=== PATIENT | female | born 1970 | race African-American/Black ===

== ENCOUNTER 2016-11-22 13:22 | Observation (INO) | payer SELFPAY ==
[2016-11-22] MEDS ORDERED: ASPIRIN 81 MG TABLET, CHEWABLE PO ONE (13:43)
--- NOTE | 2016-11-22 13:47 | ER Document Report ---
ED Medical Screen (RME) - General Stated Complaint: CHEST PAIN, SUICIDAL IDEATION Mode of Arrival: Medic Information source: Patient Notes: 45 y/o F presents to ED via ems c/o intermittently persistent episodes of chest pain, sob, and n/v. Also reports has been under alot of stress and anxiety lately and states depression has been getting worse and has thought about suicide. I have greeted and performed a rapid initial assessment of this patient. A comprehensive ED assessment and evaluation of the patient, analysis of test results and completion of the medical decision making process will be conducted by additional ED providers. TRAVEL OUTSIDE OF THE [place] IN LAST 30 DAYS: No - Related Data Allergies/Adverse Reactions: morphine Allergy (Verified 09/11/16 08:17) Rivaroxaban Allergy (Verified 09/11/16 08:17) Past Medical History - Past Medical History Cardiac Medical History: Reports: Hx Atrial Fibrillation, Hx Coronary Artery Disease, Hx Heart Attack - x 2, Hx Hypertension Psychiatric Medical History: Reports: Hx Depression Past Surgical History: Reports: Hx Cardiac Surgery, Hx Cholecystectomy - Immunizations Hx Diphtheria, Pertussis, Tetanus Vaccination: No Physical Exam - Vital signs Vitals: Temp Pulse Resp BP Pulse Ox 98.0 F 86 20 148/89 H 100 11/22/16 13:40 11/22/16 13:40 11/22/16 13:40 11/22/16 13:40 11/22/16 13:40 - General General appearance: Alert In distress: Mild - Respiratory Respiratory status: No respiratory distress Breath sounds: Normal, Productive cough - Cardiovascular Rhythm: Regular Pulses: Normal: Radial Normal capillary refill: Yes - Psychological Associated symptoms: Anxious Course - Vital Signs Vital signs: Temp Pulse Resp BP Pulse Ox 98.0 F 86 20 148/89 H 100 11/22/16 13:40 11/22/16 13:40 11/22/16 13:40 11/22/16 13:40 11/22/16 13:40
[2016-11-22] MEDS ORDERED: LORAZEPAM 1 MG TABLET PO ONE (15:10)
[2016-11-22] MEDS ORDERED: PROMETHAZINE HCL INJ 25 MG/1 ML VIAL IV ONE ×2 (15:15→15:48)
[2016-11-22] MEDS ORDERED: NITROGLYCERIN 0.4 MG/TAB 25 TAB/BOTTLE SL PRN ×2 (15:21→18:05)
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
[2016-11-22 16:44] LABS: ABSOLUTE EOSINOPHILS # (AUTO) 0.2 10^3/uL (0.0-0.6); ABSOLUTE LYMPHOCYTES (AUTO) 2.4 10^3/uL (0.5-4.7); ABSOLUTE MONOCYTES (AUTO) 0.5 10^3/uL (0.1-1.4); ABSOLUTE NEUT (AUTO) 1.8 10^3/uL (1.7-8.2); EOSINOPHILS % (AUTO) 3.6 % (0-6); HEMATOCRIT 40.8 % (36.0-47.0); HEMOGLOBIN 13.5 g/dL (12.0-15.5); HGB HCT DIFFERENCE -0.3; LYMPHOCYTES % (AUTO) 48.4 % (13-45); MEAN CORPUSCULAR HEMOGLOBIN 28.1 pg (27.0-33.4); MEAN CORPUSCULAR HGB CONC 33.2 g/dL (32.0-36.0); MEAN CORPUSCULAR VOLUME 85 fl (80-97); MONOCYTES % (AUTO) 9.6 % (3-13); RED BLOOD COUNT 4.82 10^6/uL (3.72-5.28); RED CELL DISTRIBUTION WIDTH 14.9 % (11.5-14.0); SEGMENTED NEUTROPHILS % (AUTO) 37.4 % (42-78); WHITE BLOOD COUNT 4.9 10^3/uL (4.0-10.5)
[2016-11-22 17:04] LABS: ALANINE AMINOTRANSFERASE 22 U/L (9-52); ALBUMIN 4.6 g/dL (3.5-5.0); ALKALINE PHOSPHATASE 65 U/L (38-126); ANION GAP 9 (5-19); ASPARTATE AMINO TRANSFERASE 22 U/L (14-36); BILIRUBIN,TOTAL 0.3 mg/dL (0.2-1.3); BLOOD UREA NITROGEN 13 mg/dL (7-20); CALCIUM 10.6 mg/dL (8.4-10.2); CARBON DIOXIDE 29 mmol/L (22-30); CHLORIDE 105 mmol/L (98-107); CREATINE KINASE 84 U/L (30-135); CREATININE RESULT 0.83 mg/dL (0.52-1.25); GLUCOSE 81 mg/dL (75-110); LIPASE 67.4 U/L (23-300); POTASSIUM 4.7 mmol/L (3.6-5.0); SODIUM 143.2 mmol/L (137-145); TOTAL PROTEIN 7.1 g/dL (6.3-8.2)
[2016-11-22 17:05] LABS: ALCOHOL < 10 mg/dL (NONE DETECTED)
[2016-11-22 17:16] LABS: CREATINE KINASE MB < 0.22 ng/mL (<4.55); TROPONIN I < 0.012 ng/mL
[2016-11-22] MEDS ORDERED: ONDANSETRON HCL INJ/PF 4 MG/2 ML SDV IV PRN (18:05)
[2016-11-22] MEDS ORDERED: MAG HYDROX/AL HYDROX/SIMETH SUSP 30 ML UDCUP PO PRN (18:05)
[2016-11-22 19:11] LABS: THYROID STIMULATING HORMONE 0.02 uIU/mL (0.47-4.68)
[2016-11-22] MEDS ORDERED: FLUCONAZOLE 100 MG TABLET PO ONE (19:15)
[2016-11-22] MEDS ORDERED: BISACODYL 5 MG TABEC PO ONE (19:15)
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
[2016-11-22] MEDS: TRAMADOL HCL 50 MG TABLET PO PRN (19:53)
--- NOTE | 2016-11-22 20:10 | EKG REPORT ---
SEVERITY:- ABNORMAL ECG - SINUS RHYTHM REPOL ABNRM SUGGESTS ISCHEMIA, INFERIOR LEADS : Confirmed by: Wil Garcia 22-Nov-2016 20:09:19
--- NOTE | 2016-11-22 20:10 | EKG REPORT ---
SEVERITY:- BORDERLINE ECG - SINUS RHYTHM PROBABLE LEFT ATRIAL ABNORMALITY NONSPECIFIC ST-T CHANGES : Confirmed by: Wil Garcia 22-Nov-2016 20:09:11
[2016-11-22] MEDS ORDERED: LIDOCAINE 5% (700 MG) TRANSDERMAL ADH..PATCH TP ONE (21:00)
[2016-11-22] MEDS: ATORVASTATIN CALCIUM 40 MG TABLET PO SCH (21:17)
[2016-11-22] MEDS ORDERED: LORAZEPAM INJ 2 MG/1 ML VIAL IV ONE (21:17)
[2016-11-22] MEDS: OXCARBAZEPINE 150 MG TABLET PO SCH (21:21)
[2016-11-22] MEDS: METOPROLOL SUCCINATE 25 MG TAB.SR.24H PO SCH (21:21)
[2016-11-22] MEDS: OXYCODONE-ACETAMINOPHEN 5-325 MG TABLET PO PRN (21:22)
[2016-11-22] MEDS: HYDROXYZINE PAMOATE 50 MG CAPSULE PO PRN (21:22)
[2016-11-22] MEDS ORDERED: LOSARTAN POTASSIUM 25 MG TABLET PO SCH (22:00)
[2016-11-22] MEDS: ZIPRASIDONE HCL 20 MG CAPSULE PO SCH (22:28)
[2016-11-22] MEDS ORDERED: INFLUENZA ADLT QUAD (36MOS+) 2016-17 VAC 0.5 ML SYR IM PRN (22:33)
[2016-11-22 22:42] LABS: CREATINE KINASE MB < 0.22 ng/mL (<4.55); TROPONIN I < 0.012 ng/mL
[2016-11-22] MEDS ORDERED: NICOTINE 7 MG/24 HR PATCH.TD24 TD PRN (23:31)
[2016-11-23] MEDS: OXYCODONE-ACETAMINOPHEN 5-325 MG TABLET PO PRN ×3 (04:28→21:35)
[2016-11-23] MEDS: HYDROXYZINE PAMOATE 50 MG CAPSULE PO PRN (04:28)
[2016-11-23] MEDS ORDERED: NICOTINE 7 MG/24 HR PATCH.TD24 ONE (04:54)
[2016-11-23 05:38] LABS: CHOLESTEROL 162.86 mg/dL (0-200); CREATINE KINASE 63 U/L (30-135); Direct HDL 60 mg/dL (>40); TRIGLYCERIDES 96 mg/dL (<150)
[2016-11-23 05:49] LABS: DIRECT LDL 73 mg/dL (<100)
[2016-11-23 05:54] LABS: CREATINE KINASE MB < 0.22 ng/mL (<4.55); TROPONIN I < 0.012 ng/mL
[2016-11-23] MEDS: LANSOPRAZOLE 15 MG TAB.RAP.DR PO SCH ×2 (06:00→16:00)
[2016-11-23] MEDS: LOSARTAN POTASSIUM 25 MG TABLET PO SCH (09:28)
[2016-11-23] MEDS: OXCARBAZEPINE 150 MG TABLET PO SCH ×2 (09:28→21:27)
[2016-11-23] MEDS: TRAMADOL HCL 50 MG TABLET PO PRN ×2 (09:28→16:00)
[2016-11-23] MEDS: METOPROLOL SUCCINATE 25 MG TAB.SR.24H PO SCH ×2 (09:29→21:28)
[2016-11-23] MEDS: LIDOCAINE 5% (700 MG) TRANSDERMAL ADH..PATCH TP SCH (09:29)
[2016-11-23] MEDS: DOCUSATE SODIUM 100 MG CAPSULE PO SCH ×2 (09:29→17:29)
[2016-11-23] MEDS: DULOXETINE HCL 30 MG CAPSULE.DR PO SCH (09:29)
[2016-11-23] MEDS: ASPIRIN 325 MG TABLET, ENT COATED PO SCH (09:29)
[2016-11-23 11:03] LABS: CREATINE KINASE MB < 0.22 ng/mL (<4.55); TROPONIN I < 0.012 ng/mL
--- NOTE | 2016-11-23 12:02 | EKG REPORT ---
SEVERITY:- ABNORMAL ECG - SINUS RHYTHM FIRST DEGREE AV BLOCK BORDERLINE LEFT AXIS DEVIATION BORDERLINE R WAVE PROGRESSION, ANTERIOR LEADS : Confirmed by: Connie Navarro MD 23-Nov-2016 12:01:55
[2016-11-23] MEDS ORDERED: NORMAL SALINE 1000 ML 1,000 ML IV PRN (16:04)
[2016-11-23] MEDS: PROMETHAZINE HCL 25 MG TABLET PO PRN ×2 (16:29→21:36)
--- NOTE | 2016-11-23 16:42 | PDOC PROGRESS REPORT ---
Subjective Progress Note for:: 11/23/16 Subjective:: The patient was seen earlier today on rounds. The patient states that she did have some chest pain earlier today. The patient had no events on [facility]. A she has had no reported episodes of vomiting nor diarrhea. The patient admits to anxiousness and states that she is preoccupied with suicidal thoughts. However the patient is unable to articulate an actual plan only the fact that she wants to . The patient states that she is completely hopeless and "at the end of her rope". Physical Exam Vital Signs: Temp Pulse Resp BP Pulse Ox 98.1 F 62 16 124/76 100 11/23/16 07:53 11/23/16 07:53 11/23/16 07:53 11/23/16 07:53 11/23/16 07:53 Intake & Output 11/21/16 11/22/16 11/23/16 23:59 23:59 23:59 Intake Total 1244 Balance 1244 Weight 73.4 kg 73.4 kg General appearance: PRESENT: no acute distress, cooperative, disheveled, thin, well-developed Head exam: PRESENT: atraumatic, normocephalic Eye exam: PRESENT: conjunctiva pink, EOMI, PERRLA. ABSENT: scleral icterus Ear exam: PRESENT: normal external ear exam Mouth exam: PRESENT: moist, tongue midline Neck exam: ABSENT: carotid bruit, JVD, lymphadenopathy, thyromegaly Respiratory exam: PRESENT: clear to auscultation zhou, symmetrical, unlabored. ABSENT: rales, rhonchi, tachypnea, wheezes Cardiovascular exam: PRESENT: RRR. ABSENT: diastolic murmur, rubs, systolic murmur Pulses: PRESENT: normal dorsalis pedis pul Vascular exam: PRESENT: normal capillary refill GI/Abdominal exam: PRESENT: normal bowel sounds, soft. ABSENT: distended, guarding, mass, organolmegaly, rebound, tenderness Rectal exam: PRESENT: deferred Extremities exam: PRESENT: full ROM. ABSENT: calf tenderness, clubbing, pedal edema Neurological exam: PRESENT: alert, awake, oriented to person, oriented to place , oriented to time, oriented to situation, CN II-XII grossly intact. ABSENT: motor sensory deficit Psychiatric exam: PRESENT: appropriate affect, normal mood. ABSENT: homicidal ideation, suicidal ideation Skin exam: PRESENT: dry, intact, warm. ABSENT: cyanosis, rash Results Laboratory Results: 11/23/16 04:25 Triglycerides 96 Cholesterol 162.86 LDL Cholesterol Direct 73 VLDL Cholesterol 19.0 HDL Cholesterol 60 11/22/16 11/23/16 11/23/16 22:00 04:25 04:25 Creatine Kinase 63 CK-MB (CK-2) < 0.22 < 0.22 Troponin I < 0.012 < 0.012 11/23/16 10:18 Creatine Kinase CK-MB (CK-2) < 0.22 Troponin I < 0.012 Impressions: Chest X-Ray 11/22/16 13:43 IMPRESSION: No significant interval change. No acute findings. Other findings as noted above Assessment & Plan - Diagnosis (1) History of atrial flutter Is this a current diagnosis for this admission?: YesPlan: Status post ablation. The patient has not had any medications in months. Currently in sinus rhythm on the monitor. Resume the patient's beta chalo. (2) Anxiety Is this a current diagnosis for this admission?: Yes (3) Chest pain Qualifiers: Chest pain type: unspecified Qualified Code(s): R07.9 - Chest pain, unspecified Is this a current diagnosis for this admission?: YesPlan: Given that this has yet recurred and with the mild EKG changes will consult cardiology for input the patient most likely will need cardiac clearance if the patient is to be placed in a psychiatric facility. (4) Depression Qualifiers: Depression Type: unspecified Qualified Code(s): F32.9 - Major depressive disorder, single episode, unspecified Is this a current diagnosis for this admission?: YesPlan: This appears to be hopelessness. The patient does not have a actual suicidal plan but does express thoughts of suicidality. The patient has been seen and evaluated by psychology and at this time does not meet for IVC criteria. The patient denies any intent to self-harm or to harm others. (5) PTSD (post-traumatic stress disorder) Is this a current diagnosis for this admission?: YesPlan: Will resume the patient's home medications. (6) Tobacco abuse Is this a current diagnosis for this admission?: Yes - Time Time Spent with patient: 25-34 minutes Medications reviewed and adjusted accordingly: Yes
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
[2016-11-23] MEDS: ZIPRASIDONE HCL 20 MG CAPSULE PO SCH (21:27)
[2016-11-23] MEDS: ATORVASTATIN CALCIUM 40 MG TABLET PO SCH (21:27)
[2016-11-24] MEDS: LANSOPRAZOLE 15 MG TAB.RAP.DR PO SCH (05:21)
[2016-11-24] MEDS: OXYCODONE-ACETAMINOPHEN 5-325 MG TABLET PO PRN ×2 (10:35→22:18)
[2016-11-24] MEDS: DULOXETINE HCL 30 MG CAPSULE.DR PO SCH (10:35)
[2016-11-24] MEDS: DOCUSATE SODIUM 100 MG CAPSULE PO SCH ×2 (10:35→17:20)
[2016-11-24] MEDS: METOPROLOL SUCCINATE 25 MG TAB.SR.24H PO SCH ×2 (10:36→22:18)
[2016-11-24] MEDS: LOSARTAN POTASSIUM 25 MG TABLET PO SCH (10:36)
[2016-11-24] MEDS: OXCARBAZEPINE 150 MG TABLET PO SCH ×2 (10:36→22:18)
[2016-11-24] MEDS: ASPIRIN 325 MG TABLET, ENT COATED PO SCH (10:37)
[2016-11-24] MEDS: LIDOCAINE 5% (700 MG) TRANSDERMAL ADH..PATCH TP SCH (10:37)
[2016-11-24] MEDS: PROMETHAZINE HCL 25 MG TABLET PO PRN ×3 (10:39→22:18)
--- NOTE | 2016-11-24 11:52 | PDOC PROGRESS REPORT ---
Subjective Progress Note for:: 11/24/16 Subjective:: Patient seems to be doing better with gradual improvement. Patient to undergo nuclear stress test today. Nuclear stress test procedure was explained to the patient in detail. Risks benefits were discussed and informed consent was obtained. Alternatives were discussed. Patient informed that based on risk factors, physical exam, lab data findings and symptoms there is at least intermediate probability of underlying CAD. Nuclear stress test procedure was therefore scheduled.. Patient denying any PND, orthopnea. Patient denied any sustained palpitations, dizziness, syncope, near syncope. Patient denying any fever chills. Patient denying any other significant discomfort. Patient is maintaining sinus rhythm. Review of systems: Rest review of systems negative. Medications: Medications have been reviewed. However in the nuclear stress lab, after having completed rest imaging, patient developed severe chest pain which were 5 out of 5, describes as tightness. Patient was subsequently sent To the floor for further evaluation. The nuclear stress lab did not really call me. It seems they just communicated with the nurse on the floor and sent her up to be evaluated further by the hospitalist. I did however order a EKG and one set of troponin I. I also placed patient on Cardizem CD 120 mg and Imdur 30 mg, thinking possible vasospasm, however multiple differential diagnoses exist for this chest pain. Physical Exam Vital Signs: Temp Pulse Resp BP Pulse Ox 98.2 F 62 22 H 139/69 H 100 11/24/16 08:25 11/24/16 08:25 11/24/16 08:25 11/24/16 08:25 11/24/16 08:25 Intake & Output 11/23/16 11/24/16 11/25/16 06:59 06:59 06:59 Intake Total 444 3164 Output Total 900 Balance 444 2264 Weight 73.4 kg 75.4 kg Exam: GENERAL: well-nourished and in no acute distress. Alert and oriented x3 HEAD: Atraumatic, normocephalic. EYES: Pupils equal round and reactive to light, extraocular movements intact, sclera anicteric, conjunctiva are normal. ENT: TMs normal, nares patent, oropharynx clear without exudates. Moist mucous membranes. No oral ulcerations or bleeding gums noted NECK: supple without lymphadenopathy. Trachea is central. No cervical or axillary lymphadenopathy noted. Carotids are 2+, JVD WNL LUNGS: Respiration seems nonlabored, no significant accessory muscle action noted. Breath sounds clear to auscultation bilaterally and equal noted. No wheezes rales or rhonchi noted. No significant dullness noted on percussion. CHEST: Palpation of the chest wall shows some chest wall tenderness. No other significant abnormalities noted.Scar of recent surgery noted right side back of the chest. HEART: [place] [employer], No PSH, 1/6 LAMINE aortic area, 1/6 [place] systolic murmur mitral area, no rubs, no gallops. ABDOMEN: Soft, no abdominal tenderness appreciated, normoactive bowel sounds. No guarding, no rebound. No rigidity noted . No masses appreciated. EXTREMITIES: Pedal pulses are 1-2+, no calf tenderness noted. No clubbing or cyanosis.trace to 1+ pedal edema noted NEUROLOGICAL: Focused neurological exam showed no significant neurologic deficit. Normal speech, no focal weakness appreciated. PSYCH: Normal mood, normal affect. Judgment and insight within normal limits. SKIN: No significant ecchymosis, rash, ulcerations or signs of pruritus noted. MUSCULOSKELETAL EXAM: No significant joint swelling noted. Results Laboratory Results: 11/22/16 11/23/16 11/23/16 22:00 04:25 04:25 Creatine Kinase 63 CK-MB (CK-2) < 0.22 < 0.22 Troponin I < 0.012 < 0.012 11/23/16 11/23/16 10:18 16:20 Creatine Kinase CK-MB (CK-2) < 0.22 Troponin I < 0.012 < 0.012 Impressions: Chest X-Ray 11/22/16 13:43 IMPRESSION: No significant interval change. No acute findings. Other findings as noted above Assessment & Plan - Diagnosis (1) Chest pain Qualifiers: Chest pain type: unspecified Qualified Code(s): R07.9 - Chest pain, unspecified Is this a current diagnosis for this admission?: Yes (2) Depression Qualifiers: Depression Type: unspecified Qualified Code(s): F32.9 - Major depressive disorder, single episode, unspecified Is this a current diagnosis for this admission?: Yes (3) History of atrial flutter Is this a current diagnosis for this admission?: Yes (4) PTSD (post-traumatic stress disorder) Is this a current diagnosis for this admission?: Yes (5) Tobacco abuse Is this a current diagnosis for this admission?: Yes - Notes Notes: Patient had an episode of severe chest pain while in the nuclear stress lab. I was not called by the nuclear stress lab but they sent the patient up. An EKG was not performed at that time.I did however order a EKG and one set of troponin I. I also placed patient on Cardizem CD 120 mg and Imdur 30 mg, thinking possible vasospasm, however multiple differential diagnoses exist for this chest pain. Depression: Currently depressed but stable. History of atrial flutter: Elevation is status post ablation. PTSD: Currently stable. Tobacco abuse: Patient advised to quit smoking, currently on nicotine patch. Patient was seen again after she was sent back on the floor. Still waiting for the EKGs to be performed. - Time Time with patient: Greater than 35 minutes - CODE STATUS was discussed, patient remains full code. Surrogate decision-maker unchanged. Multiple medical problems were addressed.More than 50% of the time spent coordinating care, discussing management plans with involved caregivers. Management plans discussed with involved personnels. Medical decision making was of moderate complexity.
[2016-11-24] MEDS ORDERED: ISOSORBIDE MONONITRATE 30 MG TAB.ER.24H PO ONE (12:00)
[2016-11-24] MEDS ORDERED: DILTIAZEM HCL 120 MG CAP.SR.24H PO ONE (12:00)
--- NOTE | 2016-11-24 12:09 | XCELERA REPORT ---
[address] [address] Transthoracic Echocardiogram Report Name: JAMES GIORDANO Age: 45 yrs Gender: Female : 1970 Patient Status: Inpatient Patient Location: 4N\S\[facility]\S\A Study Date: 11/24/2016 10:43 AM Height: 62 in Weight: 161 lb BSA: 1.7 m2 Procedure: A complete two-dimensional transthoracic echocardiogram was performed (2D, M-mode, spectral and color flow Doppler). The study was technically adequate with some images being suboptimal in quality. Reason For Study: chest pain Ordering Physician: WIL PITTS Performed By: Debra Zuñiga Interpretation Summary The left ventricular ejection fraction is normal. There is borderline concentric left ventricular hypertrophy. LV diastolic function could not be adequately assessed. The left ventricle is grossly normal size. No regional wall motion abnormalities noted. The right ventricular systolic function is normal. The right atrium is normal. The left atrial size is normal. There is a trace amount of mitral regurgitation There is no mitral valve stenosis. There is no aortic valve stenosis No aortic regurgitation is present. There is a trace or physiologic amount of tricuspid regurgitation Tricuspid regurgitation jet envelope not well defined to measure RV systolic pressure accurately. The aortic root is not well visualized but is probably normal size. The inferior vena cava appeared normal and decreased < 50% with respiration (RAP 10-15 mmHg) There is no pericardial effusion. MMode/2D Measurements \T\ Calculations RVDd: 2.2 cm LVIDd: 4.3 cm FS: 35.0 % Ao root diam: 2.6 cm IVSd: 1.1 cm LVIDs: 2.8 cm EDV(Teich): 82.2 ml LVPWd: 1.1 cm ESV(Teich): 29.1 ml Ao root area: 5.4 cm2 EF(Teich): 64.6 % LA dimension: 3.0 cm LVOT diam: 2.1 cm LVOT area: 3.4 cm2 Doppler Measurements \T\ Calculations MV E max talya: MV P1/2t max talya: Ao V2 max: LV V1 max P.8 cm/sec 81.4 cm/sec 143.0 cm/sec 5.5 mmHg MV A max talya: MV P1/2t: 49.4 msec Ao max PG: LV V1 max: 82.5 cm/sec MVA(P1/2t): 4.5 cm2 8.2 mmHg 116.8 cm/sec MV E/A: 0.99 MV dec slope: ZEYNEP(V,D): 2.8 cm2 482.3 cm/sec2 MV dec time: 0.17 sec PA V2 max: PI end-d talya: 96.3 cm/sec 119.9 cm/sec PA max P.7 mmHg Left Ventricle The left ventricle is grossly normal size. There is borderline concentric left ventricular hypertrophy. The left ventricular ejection fraction is normal. LV diastolic function could not be adequately assessed. No regional wall motion abnormalities noted. Right Ventricle The right ventricle is grossly normal size. There is normal right ventricular wall thickness. The right ventricular systolic function is normal. Atria The right atrium is normal. The left atrial size is normal. Interarterial septum not well visualized and not well dopplered. Cannot comment on ASD/PFO presence. Mitral Valve The mitral valve is grossly normal. There is no mitral valve stenosis. There is a trace amount of mitral regurgitation. Aortic Valve The aortic valve is not well visualized secondary to technical limitations. There is no aortic valve stenosis. No aortic regurgitation is present. Tricuspid Valve The tricuspid valve is not well visualized secondary to technical limitations. There is no tricuspid stenosis. There is a trace or physiologic amount of tricuspid regurgitation. Tricuspid regurgitation jet envelope not well defined to measure RV systolic pressure accurately. Pulmonic Valve The pulmonic valve is not well visualized. Great Vessels The aortic root is not well visualized but is probably normal size. The inferior vena cava appeared normal and decreased < 50% with respiration (RAP 10-15 mmHg). Effusions There is no pericardial effusion. : WIL PITTS > Wil Pitts
[2016-11-24] MEDS: HYDROXYZINE PAMOATE 50 MG CAPSULE PO PRN (14:17)
--- NOTE | 2016-11-24 15:44 | PSYCHOLOGICAL NOTE ---
Psych Note - Psych Note Psych Note: Conducted check in with patient who is a 45 year old female admitted to [facility]. Patient today states she is feeling better then the day she came in, but is continuing to experience thoughts of suicide. Patient again denies specific plan, means, or intent. Patient was restarted on her home psychiatric medications by Hospitalist upon admission. Discussed with patient her plans upon discharge. Patient states she will be moving into a new residence with another woman from the assisted. Discussed with patient her thoughts of suicide. Encouraged and prompted patient to alter her thought process and to focus on that she is seeking help for her heart, her mental illness, etc. which in fact, suggests she wants to live. Encouraged patient to focus on her next steps, to include moving and relocating into a new dwelling, starting services with an opt provider, and potentially working, etc. Discussed with patient her overall presentation, which includes a brighter affect. Patient discussed her need for assistance with paying for medications, as well as her Medicaid application. Encouraged patient to document in a list the characteristics she likes about herself, and how she can apply them to moving forwards. After discussion, patient did agree that she is feeling better , and that she harbors fear which may be driving her maladaptive thoughts. Patient was additionally able to verbalize that her son, who is in graduate school in [place] offers emotional support as well. Patient is A&O x4. Mood is anxious with normal affect. Patient endorses thoughts of suicide, but denies plan, intent, or means. Patient denies homicidal ideations, intent, plan, or means. Patient denies A/V h; delusions not noted. Thought processes were organized, but possibly goal oriented towards remaining in the hospital. Conversational speech was WNL for rate, tone, and prosody. Intellectual abilities were estimated within average range. Attention and focus were good. Insight, judgment, and impulse control were fair. 296.80 (F31.9) Unspecified bipolar and related disorder, per history Borderline Personality Disorder, per history R/O Posttraumatic Stress Disorder Will continue to track patient and provide supportive counseling as available. Patient has been provided resources to assist her with follow up in the community. Patient stated she planned to call [facility] today to schedule her first appointment for assessment as it may take up to 2 weeks to be seen.
--- NOTE | 2016-11-24 15:49 | PDOC PROGRESS REPORT ---
Subjective Progress Note for:: 11/24/16 Subjective:: The patient was seen earlier today on rounds. The patient's stress test was canceled today given her The patient had no events on quality assurance monitor. A she has had no reported episodes of vomiting nor diarrhea. The patient admits to anxiousness and states that she is preoccupied with suicidal thoughts. However the patient is unable to articulate an actual plan only the fact that she wants to . Physical Exam Vital Signs: Temp Pulse Resp BP Pulse Ox 98.0 F 59 L 18 123/81 100 11/24/16 11:52 11/24/16 11:52 11/24/16 11:52 11/24/16 11:52 11/24/16 11:52 Intake & Output 11/22/16 11/23/16 11/24/16 23:59 23:59 23:59 Intake Total 2604 1004 Output Total 900 Balance 2604 104 Weight 73.4 kg 73.4 kg 75.4 kg General appearance: PRESENT: no acute distress, cooperative, disheveled, thin, well-developed Head exam: PRESENT: atraumatic, normocephalic Eye exam: PRESENT: conjunctiva pink, EOMI, PERRLA. ABSENT: scleral icterus Ear exam: PRESENT: normal external ear exam Mouth exam: PRESENT: moist, tongue midline Neck exam: ABSENT: carotid bruit, JVD, lymphadenopathy, thyromegaly Respiratory exam: PRESENT: clear to auscultation zhou, symmetrical, unlabored. ABSENT: rales, rhonchi, tachypnea, wheezes Cardiovascular exam: PRESENT: RRR. ABSENT: diastolic murmur, rubs, systolic murmur Pulses: PRESENT: normal dorsalis pedis pul Vascular exam: PRESENT: normal capillary refill GI/Abdominal exam: PRESENT: normal bowel sounds, soft. ABSENT: distended, guarding, mass, organolmegaly, rebound, tenderness Rectal exam: PRESENT: deferred Extremities exam: PRESENT: full ROM. ABSENT: calf tenderness, clubbing, pedal edema Neurological exam: PRESENT: alert, awake, oriented to person, oriented to place , oriented to time, oriented to situation, CN II-XII grossly intact. ABSENT: motor sensory deficit Psychiatric exam: PRESENT: appropriate affect, normal mood. ABSENT: homicidal ideation, suicidal ideation Skin exam: PRESENT: dry, intact, warm. ABSENT: cyanosis, rash Results Laboratory Results: 11/22/16 11/23/16 11/23/16 22:00 04:25 04:25 Creatine Kinase 63 CK-MB (CK-2) < 0.22 < 0.22 Troponin I < 0.012 < 0.012 11/23/16 11/23/16 11/24/16 10:18 16:20 11:17 Creatine Kinase CK-MB (CK-2) < 0.22 Troponin I < 0.012 < 0.012 < 0.012 Impressions: Chest X-Ray 11/22/16 13:43 IMPRESSION: No significant interval change. No acute findings. Other findings as noted above Assessment & Plan - Diagnosis (1) History of atrial flutter Is this a current diagnosis for this admission?: YesPlan: Status post ablation. The patient has not had any medications in months. Currently in sinus rhythm on the monitor. Do appreciate cardiology input (2) Anxiety Is this a current diagnosis for this admission?: Yes (3) Chest pain Qualifiers: Chest pain type: unspecified Qualified Code(s): R07.9 - Chest pain, unspecified Is this a current diagnosis for this admission?: YesPlan: Second half a stress test will be tomorrow. (4) Depression Qualifiers: Depression Type: unspecified Qualified Code(s): F32.9 - Major depressive disorder, single episode, unspecified Is this a current diagnosis for this admission?: YesPlan: This appears to be hopelessness. The patient does not have a actual suicidal plan but does express thoughts of suicidality. The patient has been seen and evaluated by psychology and at this time does not meet for IVC criteria. The patient denies any intent to self-harm or to harm others. (5) PTSD (post-traumatic stress disorder) Is this a current diagnosis for this admission?: YesPlan: Will resume the patient's home medications. (6) Tobacco abuse Is this a current diagnosis for this admission?: Yes - Time Time Spent with patient: 25-34 minutes Medications reviewed and adjusted accordingly: Yes
[2016-11-24] MEDS: NAPROXEN 375 MG TABLET PO SCH (17:20)
[2016-11-24] MEDS: LANSOPRAZOLE 30 MG TAB.RAP.DR PO SCH (17:20)
[2016-11-24] MEDS: TRAMADOL HCL 50 MG TABLET PO PRN (17:25)
[2016-11-24] MEDS: ATORVASTATIN CALCIUM 40 MG TABLET PO SCH (22:17)
[2016-11-24] MEDS: ZIPRASIDONE HCL 20 MG CAPSULE PO SCH (22:18)
[2016-11-25] MEDS: PROMETHAZINE HCL 25 MG TABLET PO PRN ×2 (03:51→09:35)
[2016-11-25] MEDS: HYDROXYZINE PAMOATE 50 MG CAPSULE PO PRN ×2 (03:51→12:19)
[2016-11-25] MEDS: LANSOPRAZOLE 30 MG TAB.RAP.DR PO SCH (05:32)
[2016-11-25] MEDS: NAPROXEN 375 MG TABLET PO SCH (07:53)
--- NOTE | 2016-11-25 08:20 | EKG REPORT ---
SEVERITY:- NORMAL ECG - SINUS RHYTHM : Confirmed by: Connie Navarro MD 25-Nov-2016 08:19:13
[2016-11-25] MEDS: ASPIRIN 325 MG TABLET, ENT COATED PO SCH (09:31)
[2016-11-25] MEDS: DOCUSATE SODIUM 100 MG CAPSULE PO SCH (09:31)
[2016-11-25] MEDS: OXYCODONE-ACETAMINOPHEN 5-325 MG TABLET PO PRN (09:31)
[2016-11-25] MEDS: LOSARTAN POTASSIUM 25 MG TABLET PO SCH (09:32)
[2016-11-25] MEDS: LIDOCAINE 5% (700 MG) TRANSDERMAL ADH..PATCH TP SCH (09:32)
[2016-11-25] MEDS: OXCARBAZEPINE 150 MG TABLET PO SCH (09:32)
[2016-11-25] MEDS: DULOXETINE HCL 30 MG CAPSULE.DR PO SCH (09:32)
[2016-11-25] MEDS: METOPROLOL SUCCINATE 25 MG TAB.SR.24H PO SCH (09:32)
[2016-11-25] MEDS ORDERED: ISOSORBIDE MONONITRATE 30 MG TAB.ER.24H PO SCH (10:00)
[2016-11-25] MEDS ORDERED: DILTIAZEM HCL 120 MG CAP.SR.24H PO SCH (10:00)
[2016-11-25 12:45] VITALS: BP 131/76
[2016-11-25] MEDS ORDERED: REGADENOSON INJ 0.4 MG/5 ML DISP.SYRIN IV ONE (13:30)
--- NOTE | 2016-11-25 14:49 | DRAGON STRESS TEST REPORT ---
INTRAVENOUS LEXISCAN CARDIOLITE STRESS TEST USING SINGLE PHOTON EMMISION COMPUTERIZED TOMOGRAPHIC. DATE OF PROCEDURE: November 25, 2016 INDICATION : Chest pain CARDIAC RISK FACTORS: Hypertension, dyslipidemia, tobacco abuse and family history of CAD RESTING EKG: Sinus rhythm without any baseline ST-T wave changes STRESS EKG: No significant changes noted with LexiScan bolus REASON FOR TERMINATION: Protocol. PROCEDURE REPORT: Baseline heart rate 59 beats per minute with blood pressure of 125/86. Patient had no significant complaints. Heart rate at 2 minutes post bolus 77 with a blood pressure of 117/50. 3 minutes post bolus heart rate 77 with blood pressure of 100/52. No significant EKG changes were noted. Patient had no significant complaints during the procedure or postprocedure. CONCLUSIONS: Normal EKG and hemodynamic response to IV LexiScan. NUCLEAR DATA: At rest the patient was given 11.04 millicuries of technetium 99 sestamibi injected intravenously. As per protocol rest gated SPECT images were obtained. Subsequently the patient was given intravenous LexiScan at a dose of 0.4 mg in 5 mL intravenously, followed by flush with normal saline. Subsequently the stress dose of 40.9 millicuries of technetium 99 sestamibi was injected intravenously. As per protocol stress gated images were obtained. NUCLEAR INTERPRETATION: Both raw and processed data were used for interpretation. Visual, qualitative, computer-generated quantitative data was used. There was good myocardial uptake of technetium compound. Motion artifact and soft tissue attenuations were noted. Increased visceral uptake was noted. No definitive areas of transient perfusion defect noted. No definitive areas of fixed perfusion defect or scars noted. EKG gated imaging showed LV EF at 66 %, rest and stress gated EF similar visually. T. I D. ratio was 1.08. Lung heart ratio noted to be within normal limits 0.25. No significant extracardiac and abnormal radiotracer activities were noted. RV free wall uptake was noted to be normal. IMPRESSION: Also refer to comments under nuclear interpretation. Also test results needs to be interpreted in the context of pretest probability. 1. There is no definitive scintigraphic evidence of LexiScan induced myocardial ischemia. 2. There is no definitive scintigraphic evidence of myocardial infarction/scar. 3. EKG gated imaging shows left ejection fraction of approximately 60 %. 4. Clinical correlation requested as occasionally single vessel disease or balanced ischemia could be missed. In approximately 10% of the cases Lexiscan may not cause adequate vasodilatory stress. RECOMMENDATIONS: Aggressive risk factor modification, medical therapy. Clinical correlation with echocardiogram derived ejection fraction. Inability to exercise by itself can lead to increased cardiovascular event risks. Consider cardiology consultation if clinically indicated. I AM AVAILABLE FOR CARDIOLOGY CONSULTATION AND FOLLOWUP IF REQUESTED BY PMD Wil Garcia M.D., [facility] [employer] web ui software engineer, Board certified in cardiovascular diseases, Nuclear cardiology, Echocardiography Cardiac CT and cardiac MRI Ph. [phone] [facility]
--- NOTE | 2016-11-25 15:36 | PDOC PROGRESS REPORT ---
Subjective Progress Note for:: 11/25/16 Subjective:: Patient seems to be doing better with gradual improvement. Patient completed stress test today. Nuclear stress test results was explained to the patient in detail. Patient denying any PND, orthopnea. Patient denied any sustained palpitations, dizziness, syncope, near syncope. Patient denying any fever chills. Patient denying any other significant discomfort. Patient is maintaining sinus rhythm. Review of systems: Rest review of systems negative. Medications: Medications have been reviewed. Physical Exam Vital Signs: Temp Pulse Resp BP Pulse Ox 97.2 F 66 16 131/76 H 100 11/25/16 12:40 11/25/16 12:40 11/25/16 12:40 11/25/16 12:40 11/25/16 12:40 Intake & Output 11/24/16 11/25/16 11/26/16 06:59 06:59 06:59 Intake Total 3164 850 Output Total 900 900 Balance 2264 -50 Weight 75.4 kg Exam: GENERAL: well-nourished and in no acute distress. Alert and oriented x3 HEAD: Atraumatic, normocephalic. EYES: Pupils equal round and reactive to light, extraocular movements intact, sclera anicteric, conjunctiva are normal. ENT: TMs normal, nares patent, oropharynx clear without exudates. Moist mucous membranes. No oral ulcerations or bleeding gums noted NECK: supple without lymphadenopathy. Trachea is central. No cervical or axillary lymphadenopathy noted. Carotids are 2+, JVD WNL LUNGS: Respiration seems nonlabored, no significant accessory muscle action noted. Breath sounds clear to auscultation bilaterally and equal noted. No wheezes rales or rhonchi noted. No significant dullness noted on percussion. CHEST: Palpation of the chest wall shows no significant chest wall tenderness. No other significant abnormalities noted. Scar of recent surgery noted right side back of the chest. HEART: [place] [employer] [place], No PSH, 1/6 LAMINE aortic area, 1/6 [place] systolic murmur mitral area, no rubs, no gallops. ABDOMEN: Soft, no significant tenderness appreciated, normoactive bowel sounds. No guarding, no rebound. No rigidity noted . No masses appreciated. EXTREMITIES: Pedal pulses are 1-2+, no calf tenderness noted. No clubbing or cyanosis.trace to 1+ pedal edema noted NEUROLOGICAL: Focused neurological exam showed no significant neurologic deficit. Normal speech, no focal weakness appreciated. PSYCH: Normal mood, normal affect. Judgment and insight within normal limits. SKIN: No significant ecchymosis, rash, ulcerations or signs of pruritus noted. MUSCULOSKELETAL EXAM: No significant joint swelling noted. Results Laboratory Results: 11/22/16 11/23/16 11/23/16 22:00 04:25 04:25 Creatine Kinase 63 CK-MB (CK-2) < 0.22 < 0.22 Troponin I < 0.012 < 0.012 11/23/16 11/23/16 11/24/16 10:18 16:20 11:17 Creatine Kinase CK-MB (CK-2) < 0.22 Troponin I < 0.012 < 0.012 < 0.012 Impressions: Chest X-Ray 11/22/16 13:43 IMPRESSION: No significant interval change. No acute findings. Other findings as noted above Assessment & Plan - Diagnosis (1) Chest pain Qualifiers: Chest pain type: unspecified Qualified Code(s): R07.9 - Chest pain, unspecified Is this a current diagnosis for this admission?: Yes (2) Depression Qualifiers: Depression Type: unspecified Qualified Code(s): F32.9 - Major depressive disorder, single episode, unspecified Is this a current diagnosis for this admission?: Yes (3) History of atrial flutter Is this a current diagnosis for this admission?: Yes (4) PTSD (post-traumatic stress disorder) Is this a current diagnosis for this admission?: Yes (5) Tobacco abuse Is this a current diagnosis for this admission?: Yes - Notes Notes: Chest pain: Patient claims chest pain is improved. This was evaluated with a nuclear stress test. Nuclear stress test was negative for any significant areas of ischemia or any significant areas of scar. The nuclear stress test is felt to be relatively low risk. Patient informed that occasionally single- vessel disease and balanced ischemia could be missed. Patient advised aggressive risk factor modification and medical therapy. Patient informed that further evaluation may become necessary if symptoms worsens or there is a development of new symptoms indicative of angina or angina equivalent symptom. Depression: Currently stable patient had a psych evaluation. History of atrial flutter: Patient status post ablation. There has been no recurrence. Tobacco abuse: Adverse effect of tobacco smoking discussed. Patient advised in tobacco cessation. PTSD: Patient being followed by psychiatrist Obesity: Patient advised in weight loss. - Time Time with patient: Greater than 35 minutes - Patient was seen multiple times. Total time exceeds 40 minutes. In the morning nuclear stress test procedure, risks benefits, alternatives were discussed. Patient seen during the stress test. Patient also seen after stress test when results were discussed with the patient in detail. Patient's questions were answered. Nuclear stress test results were discussed with the patient. Patient was informed that no definitive evidence of pharmacologic stress-induced ischemia noted. No definite fixed defects were noted. Patient informed that occasionally significant single vessel disease or balanced ischemia could be missed. However based on the current study results, would recommend aggressive risk factor modification and medical therapy. It may also be worthwhile to consider evaluation or empiric management of other causes of chest pain. Should no other cause be found and if persistent in having chest pain, then cardiac catheterization should be considered. Right now, recommendations are for aggressive risk factor modification and medical management. More than 50% of the time spent coordinating care, discussing management plans with involved caregivers. Management plans discussed with involved personnels. Medical decision making was of moderate complexity. Medications reviewed and adjusted accordingly: Yes
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
== END 2016-11-25 14:15 | disposition home or self-care (01) ==
LOC: ER 13:22 → EH 17:45 → UNDOADMOB 17:45 → EH 18:05 → 4N 20:51
PROVIDERS: ADMIT Family Medicine; ATTEND Family Medicine
PROC: 3E033GC Introduction of Other Therapeutic Substance into Peripheral Vein, Percutaneous Approach (ICD-10-PCS; principal; 2016-11-22)
PROC: 3E033GC Introduction of Other Therapeutic Substance into Peripheral Vein, Percutaneous Approach (ICD-10-PCS; 2016-11-22)
DX: I48.92 Unspecified atrial flutter (principal); F41.9 Anxiety disorder, unspecified; R07.9 Chest pain, unspecified; F31.9 Bipolar disorder, unspecified; F43.10 Post-traumatic stress disorder, unspecified; I48.91 Unspecified atrial fibrillation; I25.10 Atherosclerotic heart disease of native coronary artery without angina pectoris; I25.2 Old myocardial infarction; I11.0 Hypertensive heart disease with heart failure; F17.210 Nicotine dependence, cigarettes, uncomplicated
CPT/HCPCS: 99285; 93005 ×3; 96374; 96375; 36415 ×3; 84439; 82553 ×2; 80307 ×3; 82550 ×2; 83690; 83735; 84443; 84703; 85025; 80053; 84484 ×3; 80061; 93306; 93017; 71010; 78452; 93010 ×3; G0378 ×5; A9500; J2785; J3490 ×6; J2060; J2550; Q9969